=== PATIENT | female | born 1975 | race Caucasian/White ===

== ENCOUNTER 2021-04-21 18:33 | Emergency (ER) | payer SELFPAY ==
[~2021-04-21] VITALS: Ht 160 cm; Wt 80.0 kg
[2021-04-21 18:35] VITALS: BP 130/75
== END 2021-04-21 18:44 | disposition left against medical advice (07) ==
LOC: M ED 18:33
DX: Z53.21 Procedure and treatment not carried out due to patient leaving prior to being seen by health care provider (principal)

== ENCOUNTER → 2021-11-20 | Outpatient (CLI) | payer OTHER ==
[~2021-11-20] MED LIST: GASTROGRAFIN SOLUTION 30ML (Q9963) As Ordered ONE; ISOVUE-370 76% 100ML VIAL As Ordered ONE
== END ==
LOC: M RAD 14:56
PROVIDERS: ATTEND Internal Medicine Gastroenterology
DX: K76.0 Fatty (change of) liver, not elsewhere classified (principal); N83.291 Other ovarian cyst, right side; R10.9 Unspecified abdominal pain
CPT/HCPCS: 74177; Q9963; Q9967

== ENCOUNTER → 2022-08-09 | Outpatient (CLI) | payer OTHER ==
[~2022-08-09] MED LIST changes: +ASPI-161 PO; +B-12100010 PO; -GASTROGRAFIN SOLUTION 30ML (Q9963) As Ordered ONE; -ISOVUE-370 76% 100ML VIAL As Ordered ONE; +MM S100C PO; +MONT10TA97 PO; +MULT-90 PO; +OMEP40CA5 PO; +PROBCAP14 PO
== END ==
LOC: M LABSMTC 11:38
PROVIDERS: ATTEND Anesthesiology
DX: Z01.812 Encounter for preprocedural laboratory examination (principal); Z11.52 Encounter for screening for COVID-19

== ENCOUNTER 2022-08-14 08:58 | Observation (INO) | payer OTHER ==
[~2022-08-14] VITALS: Ht 160 cm; Wt 80.7 kg
[~2022-08-14 08:58] MED LIST changes: +HEPARIN SOD (PORCINE) 5000UNITS/ML 1ML VIAL/SYRINGE SQ ONE; +LIDOCAINE 2% 100MG/5ML SDV (FOR ANES.) As Ordered ONE; +MIDAZOLAM INJ 2MG/2ML VIAL (J2250 PER 1MG) As Ordered ONE; +ONDANSETRON 4MG 2ML VIAL As Ordered ONE; +ROCURONIUM BROMIDE 50 MG/5 ML VIAL As Ordered ONE; +dexameTHASONE 4 MG/ML 1ML VIAL (J1100 PER 1MG) As Ordered ONE; +diphenhydrAMINE 50MG/ML VIAL As Ordered ONE; +fentaNYL 250 MCG/5 ML INJECTION As Ordered ONE; +propofoL 200 MG/20 ML VIAL As Ordered ONE
[2022-08-14] MEDS ORDERED: LR 1,000 ML IV SCH (09:40)
[2022-08-14] MEDS ORDERED: CLINDAMYCIN 900 MG in IV 1 EA IV ONE (09:50)
[2022-08-14 10:00] LABS: HEMATOCRIT 34.2 % (36.0-47.0); HEMOGLOBIN 10.7 g/dl (12.0-15.5); MEAN CORPUSCULAR HEMOGLOBIN 27.5 pg (27.0-33.0); MEAN CORPUSCULAR HGB CONC 31.3 g/dl (32.0-36.5); MEAN CORPUSCULAR VOLUME 87.9 fl (80.0-96.0); PLATELET COUNT, AUTOMATED 223 10^3/uL (150-450); RED BLOOD COUNT 3.89 10^6/uL (4.00-5.40); WHITE BLOOD COUNT 4.6 10^3/uL (4.0-10.0)
[2022-08-14] MEDS ORDERED: GENTAMICIN SULF 80MG/2ML VIAL As Ordered ONE (11:00)
[2022-08-14] MEDS ORDERED: BUPIVACAINE LIPOSOME/PF 1.3% 20ML VIAL (13.3MG/ML)(EXPAREL) As Ordered ONE (11:00)
[2022-08-14] MEDS ORDERED: BUPIVACAINE HCL 0.25% 30ML VIAL As Ordered ONE (11:00)
[2022-08-14] MEDS ORDERED: ROCURONIUM BROMIDE 50 MG/5 ML VIAL As Ordered ONE (12:39)
[2022-08-14] MEDS ORDERED: SUGAMMADEX SODIUM 500 MG/5 ML VIAL (BRIDION) As Ordered ONE (12:57)
[2022-08-14] MEDS ORDERED: ACETAMINOPHEN 1000MG 100ML IV BAG As Ordered ONE ×2 (12:57→13:10)
[2022-08-14] MEDS ORDERED: METOCLOPRAMIDE INJ 10MG/2ML VIAL (J2765 PER 1) As Ordered ONE (12:59)
[2022-08-14] MEDS ORDERED: HYDROmorphone HCL 2MG/ML 1ML VIAL As Ordered ONE (14:24)
[2022-08-14] MEDS ORDERED: ONDANSETRON 4MG 2ML VIAL IV PRN ×2 (15:35→16:00)
[2022-08-14] MEDS ORDERED: fentaNYL 100 MCG/2 ML INJECTION IV PRN (15:35)
[2022-08-14] MEDS ORDERED: oxyCODONE 5MG TAB PO PRN (15:35)
[2022-08-14] MEDS ORDERED: MORPHINE 2 MG/ML 1ML VIAL IV PRN (15:35)
[2022-08-14] MEDS ORDERED: traMADol 50 MG TAB PO PRN (16:00)
[2022-08-14] MEDS: PERCOCET 5MG/325MG TAB PO PRN (17:53)
[2022-08-14 18:00] VITALS: BP 109/67
[2022-08-14 18:30] VITALS: BP 109/67
[2022-08-14] MEDS: LR 1,000 ML IV SCH (18:33)
[2022-08-14 19:55] VITALS: BP 108/65
[2022-08-14 20:41] VITALS: BP 112/67
[2022-08-14] MEDS: CLINDAMYCIN 900 MG in IV 1 EA IV SCH (20:56)
[2022-08-14 21:28] VITALS: BP 120/65
[2022-08-14 22:58] VITALS: BP 97/57
[2022-08-14] MEDS: ACETAMINOPHEN TAB 650MG DOSE (2X325MG) PO PRN (23:08)
[2022-08-15 00:04] VITALS: BP 97/57
[2022-08-15 02:24] VITALS: BP 100/58
[2022-08-15] MEDS: CLINDAMYCIN 900 MG in IV 1 EA IV SCH (05:14)
[2022-08-15 05:31] VITALS: BP 101/58
[2022-08-15] MEDS: PERCOCET 5MG/325MG TAB PO PRN ×3 (05:36→14:35)
[2022-08-15] MEDS: LR 1,000 ML IV SCH (05:39)
[2022-08-15 10:00] VITALS: BP 100/59
[2022-08-15 11:06] LABS: HEMATOCRIT 27.3 % (36.0-47.0); MEAN CORPUSCULAR HEMOGLOBIN 27.9 pg (27.0-33.0); MEAN CORPUSCULAR HGB CONC 31.9 g/dl (32.0-36.5); MEAN CORPUSCULAR VOLUME 87.5 fl (80.0-96.0); PLATELET COUNT, AUTOMATED 196 10^3/uL (150-450); RED BLOOD COUNT 3.12 10^6/uL (4.00-5.40); WHITE BLOOD COUNT 7.3 10^3/uL (4.0-10.0)
[2022-08-15 11:12] LABS: HEMOGLOBIN 8.7 g/dl (12.0-15.5)
[2022-08-15] MEDS ORDERED: IRON27TA2 PO (13:16)
[2022-08-15] MEDS ORDERED: OXYC1TAB23 PO (13:16)
[2022-08-15] MEDS: ACETAMINOPHEN TAB 650MG DOSE (2X325MG) PO PRN (13:22)
[2022-08-15 14:00] VITALS: BP 104/61
== END 2022-08-15 15:25 | disposition home or self-care (01) ==
LOC: M SDC 08:58 → M ED INP 15:56 → M MS5PR 17:40
PROVIDERS: ADMIT Plastic Surgery Surgery of the Hand; ATTEND Plastic Surgery Surgery of the Hand
DX: L90.5 Scar conditions and fibrosis of skin (principal); L98.7 Excessive and redundant skin and subcutaneous tissue; K21.9 Gastro-esophageal reflux disease without esophagitis; F41.9 Anxiety disorder, unspecified; Z98.84 Bariatric surgery status; Z79.82 Long term (current) use of aspirin; Z79.899 Other long term (current) drug therapy
CPT/HCPCS: 13101; 13102; 15830; 36415; 81025; 85027; 88300; 96361; 96365; 96366; C9290; J0131; J1100; J1170; J1200; J1580; J1644; J2250; J2405; J2765; J3010

== ENCOUNTER → 2023-10-04 | Outpatient (REF) | payer OTHER ==
[~2023-10-04] MED LIST changes: -HEPARIN SOD (PORCINE) 5000UNITS/ML 1ML VIAL/SYRINGE SQ ONE; +IRON27TA2 PO; -LIDOCAINE 2% 100MG/5ML SDV (FOR ANES.) As Ordered ONE; -MIDAZOLAM INJ 2MG/2ML VIAL (J2250 PER 1MG) As Ordered ONE; -ONDANSETRON 4MG 2ML VIAL As Ordered ONE; +OXYC1TAB23 PO; -ROCURONIUM BROMIDE 50 MG/5 ML VIAL As Ordered ONE; -dexameTHASONE 4 MG/ML 1ML VIAL (J1100 PER 1MG) As Ordered ONE; -diphenhydrAMINE 50MG/ML VIAL As Ordered ONE; -fentaNYL 250 MCG/5 ML INJECTION As Ordered ONE; -propofoL 200 MG/20 ML VIAL As Ordered ONE
== END ==
LOC: M LAB REF 17:49
PROVIDERS: ATTEND Plastic Surgery Surgery of the Hand
DX: L90.5 Scar conditions and fibrosis of skin (principal); L98.7 Excessive and redundant skin and subcutaneous tissue